=== PATIENT | male | born 1950 | race Caucasian/White ===

== ENCOUNTER 2020-08-14 17:57 | Emergency (ER) | payer OTHER ==
[~2020-08-14] VITALS: Ht 165.1 cm; Wt 63.5 kg
[2020-08-14 18:01] VITALS: BP 118/70
[2020-08-14] MEDS ORDERED: KETOROLAC 60 MG/2 ML VIAL IM ONE (18:40)
--- NOTE | 2020-08-14 18:46 | NUR ---
69 YEAR OLD MALE COMPLAINS OF COUGH X 2 DAYS, WELL LEFT FOOT PAIN X 5 DAYS. LEFT FOOT WITH OPEN WOUND, SWOLLEN, REDNESS. PT STATES PAIN AND DIFFICULTY WALKING. LEFT FOOT WITH PEDAL PULSE +2, CAP REFILL < 3 SEC, LIMITED ROM. PT AOX4, BREATHING EVEN AND UNLABORED, SKIN WARM AND DRY. BED IN LOWEST POSITION, LOCKED, BED RAIL UPX1. PMH - DENIES ALLERGIES - NKA
--- NOTE | 2020-08-14 19:00 | NUR ---
Patient discharged with v/s stable. Written and verbal after care instructions about cellulitis, cough,, pneumonia given and explained. Patient alert, oriented and verbalized understanding of instructions. Ambulatory with steady gait. All questions addressed prior to discharge. ID band removed. Patient advised to follow up with PMD. Rx of motrin, keflex, prednisone, azithromycin given. Patient educated on indication of medication including possible reaction and side effects. Opportunity to ask questions provided and answered.
[2020-08-14 19:09] VITALS: BP 118/81
== END 2020-08-14 19:00 | disposition home or self-care (01) ==
LOC: MED 17:57
DX: L03.116 Cellulitis of left lower limb (principal); J18.9 Pneumonia, unspecified organism; R05 Cough
CPT/HCPCS: 96372; 99283; J1885